=== PATIENT | female | born 1990 | race African-American/Black ===

== ENCOUNTER 2017-01-13 22:44 | Emergency (ER) | payer OTHER ==
[~2017-01-13] VITALS: Ht 170.2 cm; Wt 98.9 kg
--- NOTE | ~2017-01-13 | EKG ---
[address] [address] ELECTROCARDIOGRAM REPORT Name: JOVITA GALEANO [facility] [id number] Admission: 01/13/17 Attend Phys: Discharge: 01/14/17 Date of : [birth year] Report #: [id number] THIS REPORT FOR: //name// [facility] ED Test Date: 2017-01-14 Test Time: 00:04:23 Pat Name: JOVITA GALEANO Department: Room: Gender: F Information Resources Director: BENJI : 1990 Requested By: Josef Cornejo Order Number: [id number] MD: Puneet Burkett Measurements Intervals [place] Rate: 77 P: 58 MS: 144 QRS: 32 QRSD: 83 T: 19 QT: 406 QTc: 460 Interpretive Statements Sinus rhythm No significant abnormality No previous ECG available for comparison Electronically Signed On 01-14-2017 9:28:39 CDT by Puneet Burkett [email or web address] <ELECTRONICALLY SIGNED> By: Puneet Burkett MD, [facility] 01/14/17 0928 0004 0004 Puneet Burkett MD, FACC /EPI
[2017-01-13 23:56] LABS: URINE BILIRUBIN NEGATIVE (Negative); URINE BLOOD 3+ (Negative); URINE COLOR RED; URINE GLUCOSE-RANDOM* NEGATIVE (Negative); URINE KETONES NEGATIVE (Negative); URINE LEUKOCYTES-REFLEX TRACE (Negative); URINE PROTEIN (DIPSTICK) 1+ (Negative)
[2017-01-14 00:07] LABS: CASTS None Seen /LPF (None Seen); CRYSTALS None Seen /LPF (None Seen); SQUAMOUS 0-3 Few /LPF (0-3); URINE RBC >20 Many /HPF (0-2); URINE WBC-REFLEX 0-5 Rare /HPF (0-5)
[2017-01-14 00:19] LABS: ABSOLUTE NEUTROPHILS 5.4 thou/uL (1.4-8.2); BASOPHILS 0.6 % (0.0-2.0); EOSINOPHILS 0.5 % (0.0-3.0); HEMATOCRIT 27.3 % (37.0-47.0); HEMOGLOBIN 9.1 gm/dL (12.0-15.0); LYMPHOCYTES 25.8 % (24.0-44.0); MCH 28.4 pg (26.0-34.0); MCHC 33.2 g/dL (28.0-37.0); MCV 85.7 fL (80.0-100.0); PLATELET COUNT 261 thou/uL (150-400); POLYS 66.1 % (36.0-66.0); RBC 3.19 mil/uL (4.20-5.00); RDW 14.3 % (10.5-14.5); WBC 8.1 thou/uL (4.0-11.0)
[2017-01-14 00:24] LABS: MANUAL DIFF NO
[2017-01-14 00:28] LABS: ANION GAP 10 mmol/L (7-16); BUN 11 mg/dL (7-18); CALCIUM 9.1 mg/dL (8.5-10.1); CHLORIDE 102 mmol/L (98-107); CO2 26 mmol/L (21-32); CREATININE 0.9 mg/dL (0.6-1.0); GLUCOSE 94 mg/dL (74-106); POTASSIUM 3.9 mmol/L (3.5-5.1); SODIUM 138 mmol/L (136-145)
[2017-01-14 00:34] LABS: ALBUMIN 3.8 g/dL (3.4-5.0); ALKALINE PHOSPHATASE 76 U/L (46-116); SGOT 16 U/L (15-37); SGPT 19 U/L (30-65); TOTAL BILIRUBIN 0.2 mg/dL (<0.1-1.0); TOTAL PROTEIN 7.9 g/dL (6.4-8.2); TROPONIN-I < 0.04 ng/mL (<0.04-0.07)
[2017-01-14] MEDS ORDERED: NAPROSYN500 MG PO (02:32)
[2017-01-14] MEDS ORDERED: IRON325 PO (02:32)
[2017-01-14 04:08] VITALS: BP 118/85
== END 2017-01-14 04:28 | disposition home or self-care (01) ==
LOC: ER 22:44
PROVIDERS: Emergency Medicine
DX: R53.1 Weakness (principal); D64.9 Anemia, unspecified; N92.0 Excessive and frequent menstruation with regular cycle; D25.9 Leiomyoma of uterus, unspecified; Z98.890 Other specified postprocedural states

== ENCOUNTER 2017-01-31 01:27 | Emergency (ER) | payer OTHER ==
[~2017-01-31] VITALS: Ht 170.2 cm; Wt 97.1 kg
[~2017-01-31 01:27] MED LIST: IRON325 PO; NAPROSYN500 MG PO
[2017-01-31 02:32] LABS: ABSOLUTE NEUTROPHILS 4.2 thou/uL (1.4-8.2); BASOPHILS 0.9 % (0.0-2.0); EOSINOPHILS 2.2 % (0.0-3.0); HEMATOCRIT 26.6 % (37.0-47.0); HEMOGLOBIN 8.5 gm/dL (12.0-15.0); LYMPHOCYTES 29.5 % (24.0-44.0); MCV 84.3 fL (80.0-100.0); MONOCYTES 7.6 % (1.0-8.0); PLATELET COUNT 276 thou/uL (150-400); POLYS 59.8 % (36.0-66.0); RBC 3.15 mil/uL (4.20-5.00); RDW 14.3 % (10.5-14.5)
[2017-01-31 02:37] LABS: MANUAL DIFF NO
[2017-01-31 02:40] LABS: CALCIUM 8.6 mg/dL (8.5-10.1); CREATININE 0.9 mg/dL (0.6-1.0); POTASSIUM 3.9 mmol/L (3.5-5.1)
[2017-01-31 02:40] LABS: URINE BILIRUBIN NEGATIVE (Negative); URINE BLOOD 3+ (Negative); URINE COLOR RED; URINE GLUCOSE-RANDOM* NEGATIVE (Negative); URINE KETONES NEGATIVE (Negative); URINE LEUKOCYTES-REFLEX TRACE (Negative); URINE PROTEIN (DIPSTICK) 2+ (Negative); URINE SPECIFIC GRAVITY >= 1.030 (1.003-1.035)
[2017-01-31 02:47] LABS: ALBUMIN 3.6 g/dL (3.4-5.0); TOTAL BILIRUBIN 0.1 mg/dL (<0.1-1.0); TOTAL PROTEIN 7.7 g/dL (6.4-8.2)
[2017-01-31 02:49] LABS: CASTS None Seen /LPF (None Seen); SQUAMOUS 0-3 Few /LPF (0-3)
[2017-01-31 02:50] LABS: CRYSTALS None Seen /LPF (None Seen); URINE RBC >20 Many /HPF (0-2); URINE WBC-REFLEX 0-5 Rare /HPF (0-5)
[2017-01-31] MEDS ORDERED: FLAGYL500 MG PO (04:25)
[2017-01-31] MEDS ORDERED: CIPROFLOXACIN500 M1 PO (04:25)
[2017-01-31] MEDS ORDERED: NORCO 5-325 TA1 EACH PO (04:25)
[2017-01-31 05:59] VITALS: BP 127/82
== END 2017-01-31 04:24 | disposition home or self-care (01) ==
LOC: ER 01:27
PROVIDERS: Emergency Medicine
DX: I88.0 Nonspecific mesenteric lymphadenitis (principal); D64.9 Anemia, unspecified; K59.00 Constipation, unspecified; R11.0 Nausea

== ENCOUNTER 2017-08-23 17:00 | Emergency (ER) | payer OTHER ==
[~2017-08-23] VITALS: Ht 170.2 cm; Wt 72.6 kg
--- NOTE | ~2017-08-23 | EKG ---
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
[~2017-08-23 17:00] MED LIST changes: +AMOXICILLIN875 MG PO; +CIPROFLOXACIN500 M1 PO; +FLAGYL500 MG PO; +MIDOL220 MG PO; +NORCO 5-325 TA1 EACH PO
[2017-08-23] MEDS ORDERED: MIDOL220 MG PO (17:34)
[2017-08-23 17:41] LABS: HEMATOCRIT 21.5 % (37.0-47.0); HEMOGLOBIN 6.6 gm/dL (12.0-15.0); MCHC 30.6 g/dL (28.0-37.0); MCV 68.8 fL (80.0-100.0); PLATELET COUNT 272 thou/uL (150-400); RBC 3.13 mil/uL (4.20-5.00); RDW 19.7 % (10.5-14.5); WBC 7.2 thou/uL (4.0-11.0)
[2017-08-23 17:49] LABS: CALCIUM 9.2 mg/dL (8.5-10.1); CREATININE 0.9 mg/dL (0.6-1.0); POTASSIUM 3.8 mmol/L (3.5-5.1)
[2017-08-23 17:55] LABS: ALBUMIN 3.6 g/dL (3.4-5.0); TOTAL BILIRUBIN 0.2 mg/dL (<0.1-1.0); TOTAL PROTEIN 8.1 g/dL (6.4-8.2)
[2017-08-23 18:18] LABS: ABSOLUTE NEUTROPHILS 4.9 thou/uL (1.4-8.2)
[2017-08-23 18:20] LABS: ANISOCYTOSIS 2+; HYPOCHROMASIA 2+
[2017-08-23 18:21] LABS: MICROCYTES 1+; SCHISTOCYTES OCCASIONAL
[2017-08-23 18:31] LABS: URINE BILIRUBIN NEGATIVE (Negative); URINE BLOOD 3+ (Negative); URINE CLARITY CLEAR; URINE COLOR YELLOW; URINE GLUCOSE-RANDOM* NEGATIVE (Negative); URINE KETONES NEGATIVE (Negative); URINE LEUKOCYTES NEGATIVE (Negative); URINE NITRITE NEGATIVE (Negative); URINE PROTEIN (DIPSTICK) TRACE (Negative); URINE SPECIFIC GRAVITY >= 1.030 (1.005-1.035); URINE UROBILINOGEN 0.2 E.U./dl (0.2-1.0)
[2017-08-23 18:43] LABS: CASTS None Seen /LPF (None Seen); SQUAMOUS 4-10 Moderate /LPF (0-3)
[2017-08-23 18:44] LABS: BACTERIA None Seen /HPF (None Seen); CRYSTALS None Seen /LPF (None Seen); MUCUS >6 Heavy strn/LPF (None Seen); URINE RBC >20 Many /HPF (0-2)
[2017-08-23 20:56] LABS: URINE BILIRUBIN 1+ (Negative); URINE BLOOD 3+ (Negative); URINE CLARITY CLEAR; URINE COLOR YELLOW; URINE GLUCOSE-RANDOM* NEGATIVE (Negative); URINE KETONES NEGATIVE (Negative); URINE LEUKOCYTES NEGATIVE (Negative); URINE NITRITE NEGATIVE (Negative); URINE PROTEIN (DIPSTICK) 1+ (Negative); URINE SPECIFIC GRAVITY >= 1.030 (1.005-1.035); URINE UROBILINOGEN 0.2 E.U./dl (0.2-1.0)
[2017-08-23 21:01] LABS: ICTOTEST (BILI CONFIRMATORY) Negative (Negative)
[2017-08-23 21:13] LABS: BACTERIA None Seen /HPF (None Seen); CASTS None Seen /LPF (None Seen); CRYSTALS None Seen /LPF (None Seen); SQUAMOUS 0-3 Few /LPF (0-3); URINE RBC >20 Many /HPF (0-2); URINE WBC 0-5 Rare /HPF (0-5)
== END 2017-08-23 21:20 | disposition short-term general hospital (02) ==
LOC: ER 17:00
PROVIDERS: Nurse Practitioner Family
DX: I95.1 Orthostatic hypotension (principal); D64.9 Anemia, unspecified; N93.9 Abnormal uterine and vaginal bleeding, unspecified; F17.210 Nicotine dependence, cigarettes, uncomplicated

== ENCOUNTER 2017-12-10 20:39 | Emergency (ER) | payer OTHER ==
[~2017-12-10] VITALS: Ht 170.2 cm; Wt 93.9 kg
[2017-12-10 21:42] LABS: URINE BILIRUBIN NEGATIVE (Negative); URINE BLOOD TRACE (Negative); URINE CLARITY CLEAR; URINE COLOR YELLOW; URINE GLUCOSE-RANDOM* NEGATIVE (Negative); URINE KETONES NEGATIVE (Negative); URINE LEUKOCYTES-REFLEX NEGATIVE (Negative); URINE NITRITE-REFLEX NEGATIVE (Negative); URINE PROTEIN (DIPSTICK) NEGATIVE (Negative); URINE SPECIFIC GRAVITY >= 1.030 (1.005-1.035); URINE UROBILINOGEN 0.2 E.U./dl (0.2-1.0)
[2017-12-10] MEDS ORDERED: ZOFRAN4 MG PO (22:02)
[2017-12-10] MEDS ORDERED: CARAFATE1 GM PO (22:02)
[2017-12-10] MEDS ORDERED: TRAMADOL 50 MG50 MG PO (22:02)
[2017-12-10] MEDS ORDERED: PROTONIX40 MG PO (22:02)
[2017-12-10] MEDS ORDERED: ZANTAC300 MG PO (22:02)
[2017-12-10 22:15] VITALS: BP 126/78
== END 2017-12-10 22:16 | disposition home or self-care (01) ==
LOC: ER 20:39
PROVIDERS: Emergency Medicine
DX: K21.9 Gastro-esophageal reflux disease without esophagitis (principal); K29.70 Gastritis, unspecified, without bleeding; F17.210 Nicotine dependence, cigarettes, uncomplicated

== ENCOUNTER 2018-01-18 16:27 | Emergency (ER) | payer OTHER ==
[~2018-01-18] VITALS: Ht 170.2 cm; Wt 95.3 kg
[~2018-01-18 16:27] MED LIST changes: +CARAFATE1 GM PO; +PROTONIX40 MG PO; +TRAMADOL 50 MG50 MG PO; +ZANTAC300 MG PO; +ZOFRAN4 MG PO
[2018-01-18 18:11] LABS: URINE BILIRUBIN NEGATIVE (Negative); URINE BLOOD NEGATIVE (Negative); URINE CLARITY CLEAR; URINE COLOR YELLOW; URINE GLUCOSE-RANDOM* NEGATIVE (Negative); URINE KETONES NEGATIVE (Negative); URINE LEUKOCYTES NEGATIVE (Negative); URINE NITRITE NEGATIVE (Negative); URINE PROTEIN (DIPSTICK) NEGATIVE (Negative); URINE UROBILINOGEN 0.2 E.U./dl (0.2-1.0)
[2018-01-18 18:25] LABS: ABSOLUTE NEUTROPHILS 3.6 thou/uL (1.4-8.2); EOSINOPHILS 1.4 % (0.0-3.0); HEMATOCRIT 28.2 % (37.0-47.0); HEMOGLOBIN 8.8 gm/dL (12.0-15.0); MCHC 31.1 g/dL (28.0-37.0); MCV 70.8 fL (80.0-100.0); MONOCYTES 8.1 % (1.0-8.0); PLATELET COUNT 279 thou/uL (150-400); POLYS 61.5 % (36.0-66.0); RBC 3.98 mil/uL (4.20-5.00); RDW 19.4 % (10.5-14.5); WBC 5.8 thou/uL (4.0-11.0)
[2018-01-18 18:32] LABS: CALCIUM 9.4 mg/dL (8.5-10.1); CREATININE 0.8 mg/dL (0.6-1.0); POTASSIUM 3.9 mmol/L (3.5-5.1)
[2018-01-18 18:48] LABS: ANISOCYTOSIS 1+; HYPOCHROMASIA 1+
[2018-01-18 18:49] LABS: MICROCYTES 1+
[2018-01-18] MEDS ORDERED: FLONASE 0.05%50 MCG NASAL (18:51)
[2018-01-18] MEDS ORDERED: NAPROSYN500 MG PO (18:51)
[2018-01-18] MEDS ORDERED: NORFLEX100 MG PO (18:51)
[2018-01-18] MEDS ORDERED: IRON325 PO ×2 (18:52→18:53)
[2018-01-18 19:20] VITALS: BP 142/90
== END 2018-01-18 19:21 | disposition home or self-care (01) ==
LOC: ER 16:27
PROVIDERS: Physician Assistant
DX: J06.9 Acute upper respiratory infection, unspecified (principal); B34.9 Viral infection, unspecified; S29.012A Strain of muscle and tendon of back wall of thorax, initial encounter; D64.9 Anemia, unspecified; F17.210 Nicotine dependence, cigarettes, uncomplicated; X58.XXXA Exposure to other specified factors, initial encounter; Y93.89 Activity, other specified; Y92.89 Other specified places as the place of occurrence of the external cause; Y99.8 Other external cause status

== ENCOUNTER 2018-07-04 19:20 | Emergency (ER) | payer OTHER ==
[~2018-07-04] VITALS: Ht 170.2 cm; Wt 95.3 kg
[~2018-07-04 19:20] MED LIST changes: +FLONASE 0.05%50 MCG NASAL; +NORFLEX100 MG PO
[2018-07-04] MEDS ORDERED: FLEXERIL PO (20:52)
[2018-07-04] MEDS ORDERED: IBUPROFEN 400400 M2 PO (20:52)
[2018-07-04 21:12] VITALS: BP 130/86
== END 2018-07-04 21:13 | disposition home or self-care (01) ==
LOC: ER 19:20
DX: M43.6 Torticollis (principal); F17.210 Nicotine dependence, cigarettes, uncomplicated

== ENCOUNTER 2019-01-24 22:12 | Emergency (ER) | payer OTHER ==
[~2019-01-24] VITALS: Ht 170.2 cm; Wt 97.5 kg
[~2019-01-24 22:12] MED LIST changes: +FLEXERIL PO; +IBUPROFEN 400400 M2 PO
[2019-01-24 23:45] VITALS: BP 133/93
== END 2019-01-24 23:51 | disposition home or self-care (01) ==
LOC: ER 22:12
DX: S93.492A Sprain of other ligament of left ankle, initial encounter (principal); F17.210 Nicotine dependence, cigarettes, uncomplicated; Z79.899 Other long term (current) drug therapy; Z98.890 Other specified postprocedural states; W17.2XXA Fall into hole, initial encounter; Y93.64 Activity, baseball; Y92.89 Other specified places as the place of occurrence of the external cause; Y99.9 Unspecified external cause status

== ENCOUNTER 2020-04-10 13:46 | Emergency (ER) | payer OTHER ==
[~2020-04-10] VITALS: Ht 170.2 cm; Wt 104.3 kg
[2020-04-10 14:19] LABS: URINE BILIRUBIN NEGATIVE (Negative); URINE BLOOD TRACE (Negative); URINE CLARITY CLEAR; URINE COLOR YELLOW; URINE GLUCOSE-RANDOM* NEGATIVE (Negative); URINE KETONES NEGATIVE (Negative); URINE NITRITE-REFLEX NEGATIVE (Negative); URINE PROTEIN (DIPSTICK) NEGATIVE (Negative); URINE UROBILINOGEN 0.2 E.U./dl (0.2-1.0)
[2020-04-10 14:21] LABS: URINE LEUKOCYTES-REFLEX 1+ (Negative)
[2020-04-10 14:33] LABS: ABSOLUTE NEUTROPHILS 4.9 thou/uL (1.4-8.2); BASOPHILS 0.7 % (0.0-2.0); EOSINOPHILS 1.7 % (0.0-3.0); HEMATOCRIT 31.7 % (37.0-47.0); HEMOGLOBIN 9.9 gm/dL (12.0-15.0); LYMPHOCYTES 21.5 % (24.0-44.0); MCHC 31.3 g/dL (28.0-37.0); MCV 79.6 fL (80.0-100.0); MONOCYTES 9.8 % (1.0-8.0); PLATELET COUNT 274 thou/uL (150-400); POLYS 66.3 % (36.0-66.0); RBC 3.98 mil/uL (4.20-5.00); RDW 17.3 % (10.5-14.5); WBC 7.5 thou/uL (4.0-11.0)
[2020-04-10 14:34] LABS: BACTERIA-REFLEX >30 Many /HPF (None Seen); CASTS None Seen /LPF (None Seen); CRYSTALS None Seen /LPF (None Seen); SQUAMOUS 4-10 Moderate /LPF (0-3)
[2020-04-10 14:35] LABS: URINE RBC 0-2 Rare /HPF (0-2); URINE WBC-REFLEX 6-15 Few /HPF (0-5)
[2020-04-10 14:42] LABS: ANION GAP 12 mmol/L (7-16); BUN 8 mg/dL (7-18); CALCIUM 9.6 mg/dL (8.5-10.1); CHLORIDE 99 mmol/L (98-107); CO2 23 mmol/L (21-32); CREATININE 0.8 mg/dL (0.6-1.0); GLUCOSE 110 mg/dL (74-106); POTASSIUM 3.6 mmol/L (3.5-5.1); SODIUM 134 mmol/L (136-145)
[2020-04-10 14:47] LABS: ALBUMIN 3.4 g/dL (3.4-5.0); DIRECT BILIRUBIN < 0.1 mg/dL (<0.1-0.2); LIPASE 106 U/L (73-393); SGOT 12 U/L (15-37); SGPT 14 U/L (30-65); TOTAL BILIRUBIN 0.2 mg/dL (0.2-1.0); TOTAL PROTEIN 8.1 g/dL (6.4-8.2)
[2020-04-10] MEDS ORDERED: MACROBID 100 M100 M1 PO (15:50)
[2020-04-10 16:02] VITALS: BP 118/74
== END 2020-04-10 16:02 | disposition home or self-care (01) ==
LOC: ER 13:46
PROVIDERS: Nurse Practitioner
DX: O23.42 Unspecified infection of urinary tract in pregnancy, second trimester (principal); R11.2 Nausea with vomiting, unspecified; O99.332 Smoking (tobacco) complicating pregnancy, second trimester; F17.210 Nicotine dependence, cigarettes, uncomplicated; Z98.51 Tubal ligation status; Z98.890 Other specified postprocedural states; Z3A.14 14 weeks gestation of pregnancy

== ENCOUNTER 2020-05-18 14:09 | Emergency (ER) | payer OTHER ==
[~2020-05-18] VITALS: Ht 170.2 cm; Wt 99.8 kg
[~2020-05-18 14:09] MED LIST changes: +MACROBID 100 M100 M1 PO
[2020-05-18 14:15] VITALS: BP 149/104
[2020-05-18 15:22] LABS: URINE BILIRUBIN NEGATIVE (Negative); URINE BLOOD NEGATIVE (Negative); URINE CLARITY SL CLOUDY; URINE COLOR YELLOW; URINE GLUCOSE-RANDOM* NEGATIVE (Negative); URINE KETONES NEGATIVE (Negative); URINE NITRITE-REFLEX NEGATIVE (Negative); URINE PROTEIN (DIPSTICK) TRACE (Negative); URINE SPECIFIC GRAVITY 1.025 (1.005-1.035)
[2020-05-18 15:23] LABS: URINE LEUKOCYTES-REFLEX 1+ (Negative)
[2020-05-18 15:38] LABS: CASTS None Seen /LPF (None Seen); CRYSTALS None Seen /LPF (None Seen); MUCUS 0-3 Light strn/LPF (None Seen); SQUAMOUS 0-3 Few /LPF (0-3)
[2020-05-18 15:40] LABS: URINE RBC None Seen /HPF (0-2); URINE WBC-REFLEX 0-5 Rare /HPF (0-5)
[2020-05-18 16:31] LABS: ABSOLUTE NEUTROPHILS 6.3 thou/uL (1.4-8.2); BASOPHILS 0.9 % (0.0-2.0); EOSINOPHILS 0.7 % (0.0-3.0); HEMATOCRIT 28.8 % (37.0-47.0); HEMOGLOBIN 9.4 gm/dL (12.0-15.0); LYMPHOCYTES 14.8 % (24.0-44.0); MCH 25.8 pg (26.0-34.0); MCHC 32.6 g/dL (28.0-37.0); MCV 79.2 fL (80.0-100.0); MONOCYTES 10.2 % (1.0-8.0); PLATELET COUNT 255 thou/uL (150-400); POLYS 73.4 % (36.0-66.0); RBC 3.63 mil/uL (4.20-5.00); RDW 15.9 % (10.5-14.5); WBC 8.6 thou/uL (4.0-11.0)
[2020-05-18] MEDS ORDERED: KEFLEX500 M1 PO (16:31)
[2020-05-18 16:39] LABS: CREATININE 0.7 mg/dL (0.6-1.0); POTASSIUM 3.9 mmol/L (3.5-5.1)
[2020-05-18 16:44] LABS: ALBUMIN 2.8 g/dL (3.4-5.0); MAGNESIUM 1.7 mg/dL (1.8-2.4); TOTAL BILIRUBIN 0.1 mg/dL (0.2-1.0); TOTAL PROTEIN 7.4 g/dL (6.4-8.2)
== END 2020-05-19 02:46 | disposition home or self-care (01) ==
LOC: ER 14:09
PROVIDERS: Emergency Medicine
DX: O26.892 Other specified pregnancy related conditions, second trimester (principal); R10.84 Generalized abdominal pain; M54.5 Low back pain; O99.332 Smoking (tobacco) complicating pregnancy, second trimester; F17.210 Nicotine dependence, cigarettes, uncomplicated; Z98.51 Tubal ligation status; Z3A.18 18 weeks gestation of pregnancy